=== PATIENT | female | born 1990 | race African-American/Black ===

== ENCOUNTER 2020-04-26 15:47 | Emergency (ER) | payer BC, SELFPAY ==
[2020-04-26] MEDS ORDERED: Ondansetron ODT 4 MG TAB ONE (16:23)
[2020-04-26 16:27] LABS: Bilirubin Small (Negative); Blood, Urine Moderate (Negative); Clarity Slightly Cloudy (Clear); Glucose, Urine (Dipstick) Negative (Negative); Leukocyte Small (Negative); Nitrite Negative (Negative); Protein, Urine (Dipstick) > or equal to 300 mg/dL (Neg-Trace)
[2020-04-26 16:30] LABS: Pregnancy Test - Urine (BHCG) Negative (Negative)
[2020-04-26 16:31] LABS: Pregu Control Background? CLEAR/WHITE (CLR/WHITE); Pregu Control Bar Appear? YES (CONTROL BAR)
[2020-04-26 16:38] LABS: RBC/HPF 21-50 HPF (0-3); WBC/HPF Greater than 50 HPF (0-3)
[2020-04-26 16:39] LABS: Bacteria/HPF 3+ HPF (None Seen)
[2020-04-26] MEDS ORDERED: Prochlorperazine 10 MG/2 ML VIAL ONE (17:14)
[2020-04-26] MEDS ORDERED: Sodium Chloride 0.9% 1,000 ML ONE (17:14)
[2020-04-26 18:02] LABS: White Blood Cell (WBC) Count 8.8 thou/uL (4.8-10.8)
[2020-04-26 18:03] LABS: %Lymphocytes 6.3 % (21.0-51.0); %Neutrophils 89.2 % (42.0-75.0); Hemoglobin 12.8 g/dL (12.0-16.0); Mean Corpuscular HGB CONC 28.8 g/dL (32.0-36.0); Mean Corpuscular Hemoglobin 22.9 pg (27.0-31.0); Mean Corpuscular Volume 79.7 fL (78.0-98.0); Mean Platelet Volume 5.8 fL (7.4-10.4); Platelet Count 335 thou/uL (130-400); RBC Distribution Width 14.8 % (11.5-14.5); Red Blood Cell (RBC) Count 5.57 mill/uL (4.20-5.40)
[2020-04-26 18:04] LABS: #Basophils 0.1 thou/uL (0.0-0.2); #Lymphocytes 0.6 thou/uL (1.20-3.40); #Monocytes 0.3 thou/uL (0.11-0.59); #Neutrophils 7.8 thou/uL (1.40-6.50); %Basophils 0.8 % (0.0-1.0); %Eosinophils 0.1 % (0.0-10.0); %Monocytes 3.7 % (0.0-10.0); Anisocytosis SLIGHT = 6-15 cells (100X) (0-5/hpf); Platelet Morphology Comment Appears Adequate
[2020-04-26 18:15] LABS: ALT (SGPT) 19 U/L (8-55); AST (SGOT) 27 U/L (5-34); Albumin 4.7 g/dL (3.5-5.0); Alkaline Phosphatase 57 U/L (40-110); Anion Gap 18 mmol/L (10-20); BUN (Urea Nitrogen) 10 mg/dL (7.0-18.7); Bilirubin, Total 1.2 mg/dL (0.2-1.2); Calc. Creatinine Clearance 0 mL/min (70-130); Calcium 9.2 mg/dL (7.8-10.44); Carbon Dioxide 20 mmol/L (22-29); Chloride 104 mmol/L (98-107); Estimated GFR-MDRD Greater than 90; Globulin 3.8 g/dL (2.4-3.5); Glucose 89 mg/dL (70-105); Lipase 16 U/L (8-78); Potassium 3.7 mmol/L (3.5-5.1); Protein, Total 8.5 g/dL (6.0-8.3); Sodium 138 mmol/L (136-145)
[2020-04-26] MEDS ORDERED: Sodium Chloride 0.9% 100 ML ONE (18:21)
[2020-04-26] MEDS ORDERED: cefTRIAXone\\ROCEPHIN 1 GM VIAL ONE (18:21)
[2020-04-26] MEDS ORDERED: Doxycycline 100 MG CAP ONE (18:21)
[2020-04-30 23:53] LABS: Chlamydia by PCR Inconclusive (NotDetected); GC by PCR Inconclusive (NotDetected)
== END 2020-04-26 20:06 | disposition short-term general hospital (02) ==
LOC: MADERS 15:47
DX: R11.2 Nausea with vomiting, unspecified (principal); N72 Inflammatory disease of cervix uteri; I10 Essential (primary) hypertension; F41.9 Anxiety disorder, unspecified; F32.9 Major depressive disorder, single episode, unspecified
CPT/HCPCS: 80053; 81003; 81015; 81025; 83605; 83690; 85025; 87480; 87491; 87510; 87591; 87660; 96361; 96365; 96375; J0696; J0780; J3490; J7050; Q0162